=== PATIENT | female | born 1985 | race Two or more races ===

== ENCOUNTER 2017-04-17 06:07 | Day surgery (SDC) | payer BC ==
[~2017-04-17] VITALS: Ht 165.1 cm; Wt 52.5 kg
[2017-04-17] VITALS (16 sets, daily range): BP systolic 104–133; BP diastolic 54–72
--- NOTE | 2017-04-17 00:17 | History and Physical Report ---
DATE OF ADMISSION: 04/17/2017 PREOPERATIVE DIAGNOSIS: The patient is a 31-year-old G0 with lower abdominal pain, increasing in frequency and dysmenorrhea as well as bilateral hemorrhagic cysts consistent with endometriomas. HISTORY OF PRESENT ILLNESS: The patient has first presented in December 2016 complaining of dysmenorrhea and occasional lower abdominal pain as well as dyspareunia. On exam and ultrasound, a 3.8 cm chocolate cyst was identified on the left. The patient was counseled. The findings were discussed, presumptive diagnosis of endometriosis was made, given the findings of ultrasound and her symptoms. The patient was attempting and she was reluctant to undergo hormonal treatment or laparoscopy at that time. She presented on 03/09/2017 complaining that the pain became more constant in her lower abdomen, right side more than the left. On exam, she still had the left-sided endometrioma. Extensive discussion insued regarding laparoscopy. She re-presented again on 04/13/2017 when possible bilateral endometriomas were seen. There was a 3.0 cm right ovarian cyst and 3.1 cm left ovarian cyst and both hemorrhagic. PAST MEDICAL HISTORY: None. PAST SURGICAL HISTORY: None. REVIEW OF SYSTEMS: Consistent with heavy bleeding, lower abdominal pain, and dysmenorrhea. The patient also has a 2-year history of infertility. PHYSICAL EXAMINATION: GENERAL: Thin female, in no acute distress. VITAL SIGNS: Height 65 inches, weight 192 pounds. Blood pressure 92/52, respiratory rate 18, and temperature 97.8. HEAD AND NECK: Pupils are equal and reactive to light. LUNGS: Clear to auscultation bilaterally. CARDIAC: Regular rate and rhythm. ABDOMEN: Soft, nondistended, and nontender. PELVIC: Bimanual exam consistent with bilateral adnexal fullness, bilateral 3 cm cysts, normal sized midline uterus. RECTOVAGINAL: No nodularity. No masses . EXTREMITIES: No cords. No cyanosis. No edema. ASSESSMENT: The patient is a 31-year-old G0 with reportedly lower abdominal pain, bilateral ovarian cysts, and history of infertility with probable endometriosis. PLAN: Laparoscopy, Bilateral cystectomies, possible laser ablation of endometriosis, hysteroscopy dilation and curettage. Jaky Mistry M.D. DR: ARIAN JOB#: [id number] CC: SMAIRA
[~2017-04-17 06:07] MED LIST: cefOXitin Sod 2 GM in D5W 110 ML IVPB ONE
[2017-04-17] MEDS ORDERED: Ropivacaine 5mg/ml Vial 30ml INJ ONE (07:23)
[2017-04-17] MEDS ORDERED: Glycopyrrolate 0.2mg/ml 1ml Vial ONE (07:30)
[2017-04-17] MEDS ORDERED: Zemuron 50mg/5ml Inj IV ONE (07:30)
[2017-04-17] MEDS ORDERED: ProvayBlue 5mg/ml 10ml amp INJ ONE (07:30)
[2017-04-17] MEDS ORDERED: Sterile Water Irrig 1000ml IRRIG ONE (07:30)
[2017-04-17] MEDS ORDERED: fentaNYL 100 mcg/2 mL IV ONE (07:30)
[2017-04-17] MEDS ORDERED: LR 1000ml ONE (07:30)
[2017-04-17] MEDS ORDERED: NS Irrig 1000ml ONE (07:30)
[2017-04-17] MEDS ORDERED: Ketorolac 30mg Inj ONE (07:30)
[2017-04-17] MEDS ORDERED: Neostigmine 1mg/ml 10ml Inj ONE (07:30)
[2017-04-17] MEDS ORDERED: Propofol 200mg/20ml IV ONE (07:30)
[2017-04-17] MEDS ORDERED: TransDerm Scop 1mg/72HR Patch TDERMAL ONE (07:35)
[2017-04-17] MEDS ORDERED: cefOXitin 2gm Inj ONE (07:35)
[2017-04-17] MEDS ORDERED: cefOXitin 1gm Inj ONE (07:36)
[2017-04-17] MEDS ORDERED: NS Irrig 1000ml IRRIG ONE (07:40)
--- NOTE | 2017-04-17 07:48 | Pre-Procedure Note/Attestation ---
Pre-Procedure Note/Attestation Complete Prior to Procedure Planned Procedure: not applicable Procedure Narrative: laparoscopy, ovarian cystectomy, possible ablation of endometriosis, hysteroscopy Dilation and curettage Indications for Procedure Pre-Operative Diagnosis: pain, dysmenorhea, bilateral ovarian cysts Attestation I attest that I discussed the nature of the procedure; its benefits; risks and complications; and alternatives (and the risks and benefits of such alternatives ), prior to the procedure, with the patient (or the patient's legal metals sales representative). I attest that, if there was a reasonable possibility of needing a blood transfusion, the patient (or the patient's legal metals sales representative) was given the [place] Department [employer] standardized written summary, pursuant to the [place] Blood Safety Act ([place] Health and Safety Code # 1645, as amended). I attest that I re-evaluated the patient just prior to the surgery and that there has been no change in the patient's H&P, except as documented below: LEXI GREEN Apr 17, 2017 07:48
[2017-04-17] MEDS ORDERED: DiphenhydrAMINE 50mg/ml Inj IVP PRN (08:00)
[2017-04-17] MEDS ORDERED: Tylenol #3 tab (300mg/30mg) ORAL PRN (08:00)
[2017-04-17] MEDS ORDERED: D5 1/2NS 1,000 ML IV SCH (08:00)
[2017-04-17] MEDS ORDERED: HYDROmorphone 1mg/ml Carpuject SUBQ PRN (08:00)
--- NOTE | 2017-04-17 10:05 | Anethesia Preoperative Eval ---
Anesthesia Pre-op PMH/ROS General Date of Evaluation: Apr 17, 2017 Time of Evaluation: 07:00 ASA Score: ASA 1 Mallampati Score Class I : Soft palate, uvula, fauces, pillars visible Class II: Soft palate, uvula, fauces visible Class III: Soft palate, base of uvula visible Class IV: Only hard plate visible Mallampati Classification: Class I Allergies: Coded Allergies: No Known Allergies (Unverified , 04/17/17) Anesthesia Pre-op Phys. Exam Physician Exam Last Vital Signs Date Time Temp Pulse Resp B/P (MAP) Pulse Ox O2 Delivery O2 Flow Rate FiO2 04/17/17 07:03 98.2 63 17 117/69 98 Room Air 98.2 Airway Exam Mallampati Score: Class I Anesthesia Pre-op A/P Labs Urine Test Test 04/17/17 06:20 Urine HCG, Qualitative Negative Solomon Crouch MD Apr 17, 2017 10:05
--- NOTE | 2017-04-17 10:05 | Brief Operative Note ---
Immediate Post Operative Note Operative Note Pre-op Diagnosis: pain, dysmenorhea, bilateral ovarian cysts Procedure: Co2 laser laparoscopy, left ovarian cystectomy, ablation of endometriosis, lysis of adhesions Post-op Diagnosis: left ovarian cyst, endometriosis , extensive adhesions Surgeon: pavithra Gluer Machine Setup Operator: saeid ruffin Anesthesiologist: Willa Specimen: yes Complications: none Condition: stable Fluids: crystalloid Estimated Blood Loss: volume - 100 cc Drains: none Implant(s) used?: No LEXI GREEN Apr 17, 2017 10:05
--- NOTE | 2017-04-17 10:06 | Immediate Post-Op Evaluation ---
Immediate Post-Op Evalulation Immediate Post-Op Evalulation Date of Evaluation: Apr 17, 2017 Time of Evaluation: 10:05 Nausea: No Vomiting: No Given Within 1 Hr of Incision: Yes Solomon Crouch MD Apr 17, 2017 10:06
[2017-04-17] MEDS ORDERED: Morphine Sulfate 2mg/ml Inj IVP PRN (10:30)
[2017-04-17] MEDS ORDERED: Ketorolac 30mg Inj IV PRN (10:30)
[2017-04-17] MEDS ORDERED: Hydromorphone 0.5mg/0.5ml inj IVP PRN (10:30)
[2017-04-17] MEDS: fentaNYL 100 mcg/2 mL IV PRN ×3 (10:30→11:06)
[2017-04-17] MEDS ORDERED: fentaNYL 100 mcg/2 mL IV PRN (10:30)
[2017-04-17] MEDS: Norco 5mg/325mg tab ORAL PRN (14:27)
--- NOTE | 2017-04-17 15:04 | 48 Hour Post Anesthesia Eval ---
Post Anesthesia Evaluation Procedure: laprascopic ovarian cystectomy Date of Evaluation: Apr 17, 2017 Time of Evaluation: 15:04 Nausea: No Vomiting: No Follow-up care needed: ready to discharge Solomon Crouch MD Apr 17, 2017 15:04
--- NOTE | 2017-04-21 08:30 | Operative Note - Dictated ---
DATE OF OPERATION: 04/17/2017 NOTE: POOR AUDIO PREOPERATIVE DIAGNOSES: 1. Dysmenorrhea. 2. Right lower quadrant pain. 3. Ovarian cyst. POSTOPERATIVE DIAGNOSES: 1. Dysmenorrhea. 2. Right lower quadrant pain. 3. Ovarian cyst. 4. Multiple filmy as well as dense adhesions. PROCEDURES PERFORMED: 1. CO2 laser pelviscopy. 2. Left ovarian cystectomy. 3. Extensive lysis of adhesions. 4. Ablation of endometriosis. 5. Hysteroscopy. SURGEON: Jaky Mistry M.D. LANCE CREWMEMBER/MLRS SERGEANT: Chiquis Cavazos M.D. ANESTHESIOLOGIST: Solomon Crouch M.D. ANESTHESIA: General endotracheal and spinal. ESTIMATED BLOOD LOSS: 100 mL. COMPLICATIONS: None. PROCEDURE IN DETAIL: After ensuring informed consent, the patient was taken to the operating room where general anesthesia was induced. The patient was sterilely prepped and draped. Weighted speculum was placed in the vagina. Cervix was dilated to an 8 Hegar dilator. Hysteroscope was placed inside the uterine cavity. Uterine cavity was distended with normal saline. Bilateral tubal ostia were observed. Hysteroscope was withdrawn. HUMI-type manipulator was placed inside the uterine cavity. Next, the attention was turned to the abdomen where umbilicus was infiltrated with a solution of local Marcaine. Next, an incision was made in the skin. A Veress needle was placed inside the peritoneal cavity and intraperitoneal placement was confirmed with low opening pressures. Next, a 11 mm trocar was placed inside the umbilicus and intraperitoneal placement was confirmed by visualization. Next, two lateral 5 mm trocars were placed under direct visualization after infiltration with local. Pelvis was explored. There was approximately a 3 to 4 cm left ovarian cyst. The left ovary was densely adherent to the left tube, which was moderately dilated as well as to the cul-de-sac. On the right side, there were dense adhesions between the ovary and the cul-de-sac, but the tube appeared to be normal. There were adhesions between the rectosigmoid and posterior uterus. There were multiple nodules of endometriosis on the right pelvic sidewall. Next, using Co2 laser left ovary was opened over the ovarian cyst. Cyst was grasped with graspers and both bluntly and sharply resected from the underlying ovarian stroma. Ovarian stroma was cauterized with bipolar and excellent hemostasis was assured. Next, left ovary was bluntly and sharply resected from posterior uterus and cul-de-sac until it was completely freed. Again, unfortunately the left tube was a hydrosalpinx - moderate to large. Next, attention was turned to the right where there were a small cyst but once it was incised with the laser it was obviously a follicular cyst. The right tube appeared completely normal. The right adnexa was both bluntly and sharply resected from the posterior uterus until it was free. Next, attention was turned to the right side where there were nodules of endometriosis as well as some filmy adhesions between the small bowel and anterior abdominal wall. First, nodules of endometriosis were ablated with laser and then using both laser and endoshears the filmy adhesions were transected. Pelvis was copiously irrigated. Excellent hemostasis was assured. Next, a dilute solution of Methylin Blue was injected through the HUMI manipulator into the pelvis. The left tube was occluded and there was no spill from that, however, the right tube was patent and appeared completely normal. Next, again pelvis was irrigated. All trocars were removed under direct visualization. Intraumbilical trocar was closed with 0 Vicryl and the skin was closed with Steri-Strips, lateral trocars were closed with 4-0 Monocryl and Steri-Strips. At the end of the procedure, all instrument and lap counts were correct x3. HUMI-type manipulator was removed and Hussein was removed. The patient was taken to the recovery area, extubated, and in stable condition. Jaky Mistry M.D. DR: ARIAN JOB#: [id number] CC: SAMIRA
== END 2017-04-17 15:50 | disposition home or self-care (01) ==
LOC: SUR 06:07 → EDBD 07:30 → SUR 15:50
DX: N80.3 Endometriosis of pelvic peritoneum (principal); N94.6 Dysmenorrhea, unspecified; N73.6 Female pelvic peritoneal adhesions (postinfective); N85.8 Other specified noninflammatory disorders of uterus; N83.202 Unspecified ovarian cyst, left side; N83.201 Unspecified ovarian cyst, right side; R10.31 Right lower quadrant pain
CPT/HCPCS: 49329; 58555; 58662; 81025; J0694; J1885; J2405; J2704; J2710; J2795; J3010; J7120; 94003; 94150

== ENCOUNTER 2017-05-16 16:40 | Emergency (ER) | payer BC ==
[~2017-05-16] VITALS: Ht 165.1 cm; Wt 49.9 kg
[2017-05-16] MEDS ORDERED: NKM (17:00)
[2017-05-16 17:37] LABS: BASOPHILS % (AUTO) 1.2 % (0.0-2.0); EOSINOPHILS % (AUTO) 1.2 % (0.0-3.0); HEMATOCRIT 38.8 % (37.0-47.0); HEMOGLOBIN 13.2 G/DL (12.0-16.0); MEAN CORPUSCULAR VOLUME 98 FL (80-99); MONOCYTES % (AUTO) 7.3 % (1.0-10.0); NEUTROPHILS % (AUTO) 61.3 % (45.0-75.0); PLATELET COUNT 325 K/UL (150-450); RED BLOOD COUNT 3.97 M/UL (4.20-5.40); RED CELL DISTRIBUTION WIDTH 11.3 % (11.6-14.8); WHITE BLOOD COUNT 8.5 K/UL (4.8-10.8)
[2017-05-16 17:40] LABS: APPEARANCE,URINE CLEAR; BILIRUBIN, URINE NEGATIVE (NEGATIVE); COLOR,URINE PALE YELLOW; GLUCOSE, URINE (UA) NEGATIVE (NEGATIVE); KETONES,URINE NEGATIVE (NEGATIVE); LEUKOCYTE ESTERASE ,URINE NEGATIVE (NEGATIVE); NITRITE,URINE NEGATIVE (NEGATIVE); PH,URINE 6 (4.5-8.0); PROTEIN,URINE NEGATIVE (NEGATIVE); UROBILINOGEN,URINE NORMAL MG/DL (0.0-1.0)
[2017-05-16 17:49] LABS: ANION GAP 9 mmol/L (5-15); BLOOD UREA NITROGEN 11 mg/dL (7-18); CALCIUM 9.1 MG/DL (8.5-10.1); CARBON DIOXIDE 28 MMOL/L (21-32); CHLORIDE 102 MMOL/L (98-107); CREATININE 0.7 MG/DL (0.55-1.30); POTASSIUM 3.7 MMOL/L (3.5-5.1); SODIUM 139 MMOL/L (136-145)
[2017-05-16 17:52] LABS: INR 1.1 (0.9-1.1)
[2017-05-16 17:54] LABS: ALANINE AMINOTRANSFERASE 20 U/L (12-78); ALBUMIN/GLOBULIN RATIO 1.1 (1.0-2.7); ALKALINE PHOSPHATASE 43 U/L (46-116); ASPARTATE AMINO TRANSFERASE 11 U/L (15-37); BILIRUBIN,TOTAL 0.2 MG/DL (0.2-1.0)
[2017-05-16 18:10] VITALS: BP 131/80
[2017-05-16 18:28] VITALS: BP 131/80
[2017-05-16] MEDS ORDERED: CEPHALEXIN500 MG ORAL (19:26)
[2017-05-16] MEDS ORDERED: TYLENOL EXTRA500 MG ORAL (19:26)
[2017-05-16] MEDS ORDERED: DIFLUCAN150 MG PO (19:26)
[2017-05-16 19:34] VITALS: BP 127/77
[2017-05-16 19:35] VITALS: BP 131/80
--- NOTE | 2017-05-16 21:36 | Emergency Room Report ---
History of Present Illness General Chief Complaint: General Complaint Source: Patient Present Illness [facility] The patient is a 31-year-old female presenting for pain after surgery. She had a left ovarian cystectomy 1 month prior in this hospital. She has had continuing pain described as a 5 out of 10 dull ache to the midabdomen. Does not radiate. No known provoking or relieving factors. She has appointment to see a surgeon next week. She presented to emergency department today due to fluid which she noticed from the incision of the umbilicus. She states that she noticed blood as well as a white discharge. She denies any other symptoms including fever, chills, back pain, dysuria, hematuria, nausea, vomiting Allergies: Coded Allergies: No Known Allergies (Unverified , 04/17/17) Patient History Past Medical History: see triage record Pertinent Family History: none Now: No Reviewed Nursing Documentation: PMH: Agreed; PSxH: Agreed Nursing Documentation-PMH Past Medical History: No Stated History Hx Cardiac Problems: No Hx Cancer: No Hx Gastrointestinal Problems: No Hx Neurological Problems: No Review of Systems All Other Systems: negative except mentioned in HPI Physical Exam Vital Signs Date Time Temp Pulse Resp B/P (MAP) Pulse Ox O2 Delivery O2 Flow Rate FiO2 05/16/17 16:54 98.5 78 18 138/92 99 Room Air 98.4 Sp02 EP Interpretation: reviewed, normal General Appearance: no apparent distress, alert, GCS 15, non-toxic Head: normocephalic, atraumatic Eyes: bilateral eye normal inspection, bilateral eye PERRL ENT: hearing grossly normal, normal pharynx, no angioedema, normal voice Gastrointestinal: normal bowel sounds, soft, non-distended, no guarding, tenderness - periumbilical Genitourinary: normal inspection, no CVA tenderness Musculoskeletal: back normal, gait/station normal, normal range of motion, non- tender Neurologic: alert, oriented x3, responsive, motor strength/tone normal, sensory intact, speech normal Psychiatric: judgement/insight normal, memory normal, mood/affect normal, no suicidal/homicidal ideation Skin: normal color, no rash, warm/dry, well hydrated Medical Decision Making PA Attestation Dr. Pulido is my supervising physician. Patient management was discussed with my supervising physician Diagnostic Impression: Primary Impression: Abdominal pain Qualified Codes: R10.33 - Periumbilical pain ER Course The patient is a 31-year-old female presenting for pain after surgery. Differential diagnoses considered but not limited to: cellulitis, wound infection, dehiscence, abscess, bowel obstruction, appendicitis, among others PE: Afebrile. NAD Abdomen is soft. Normal bowel sounds. Nondistended. No discoloration. There is a serosanguineous fluid from the umbilical incision site. Otherwise exam unremarkable Spoke with Dr. Cavazos regarding patient Blood work unremarkable. No leukocytosis CT abdomen and pelvis unremarkable The patient is given prescription for Keflex and will follow-up with surgeon. She has appointment this coming week. ER precautions provided including the patient develops abdominal pain and/or fever. She is given prescription for one dose of Diflucan as she states she always gets a yeast infection after taking antibiotics Laboratory Tests Test 05/16/17 17:15 05/16/17 17:20 05/16/17 17:29 White Blood Count 8.5 K/UL (4.8-10.8) Red Blood Count 3.97 M/UL (4.20-5.40) L Hemoglobin 13.2 G/DL (12.0-16.0) Hematocrit 38.8 % (37.0-47.0) Mean Corpuscular Volume 98 FL (80-99) Mean Corpuscular Hemoglobin 33.2 PG (27.0-31.0) H Mean Corpuscular Hemoglobin Concent 34.0 G/DL (32.0-36.0) Red Cell Distribution Width 11.3 % (11.6-14.8) L Platelet Count 325 K/UL (150-450) Mean Platelet Volume 7.6 FL (6.5-10.1) Neutrophils (%) (Auto) 61.3 % (45.0-75.0) Lymphocytes (%) (Auto) 29.0 % (20.0-45.0) Monocytes (%) (Auto) 7.3 % (1.0-10.0) Eosinophils (%) (Auto) 1.2 % (0.0-3.0) Basophils (%) (Auto) 1.2 % (0.0-2.0) Prothrombin Time 11.4 SEC (9.30-11.50) Prothrombin Time INR 1.1 (0.9-1.1) PTT 26 SEC (23-33) Sodium Level 139 MMOL/L (136-145) Potassium Level 3.7 MMOL/L (3.5-5.1) Chloride Level 102 MMOL/L (98-107) Carbon Dioxide Level 28 MMOL/L (21-32) Anion Gap 9 mmol/L (5-15) Blood Urea Nitrogen 11 mg/dL (7-18) Creatinine 0.7 MG/DL (0.55-1.30) Estimate Glomerular Filtration Rate > 60 mL/min (>60) Glucose Level 109 MG/DL (74-106) H Calcium Level 9.1 MG/DL (8.5-10.1) Total Bilirubin 0.2 MG/DL (0.2-1.0) Aspartate Amino Transferase (AST) 11 U/L (15-37) L Alanine Aminotransferase (ALT) 20 U/L (12-78) Alkaline Phosphatase 43 U/L (46-116) L Total Protein 7.8 G/DL (6.4-8.2) Albumin 4.0 G/DL (3.4-5.0) Globulin 3.8 g/dL Albumin/Globulin Ratio 1.1 (1.0-2.7) Lipase 189 U/L (73-393) Human Chorionic Gonadotropin, Quant < 1 mIU/mL (1-6) L Urine Color Pale yellow Urine Appearance Clear Urine pH 6 (4.5-8.0) Urine Specific [place] 1.010 (1.005-1.035) Urine Protein Negative (NEGATIVE) Urine Glucose (UA) Negative (NEGATIVE) Urine Ketones Negative (NEGATIVE) Urine Occult Blood 2+ (NEGATIVE) H Urine Nitrite Negative (NEGATIVE) Urine Bilirubin Negative (NEGATIVE) Urine Urobilinogen Normal MG/DL (0.0-1.0) Urine Leukocyte Esterase Negative (NEGATIVE) Urine RBC 2-4 /HPF (0 - 2) H Urine WBC 0 /HPF (0 - 2) Urine Squamous Epithelial Cells Occasional /LPF Urine Bacteria Occasional /HPF (NONE) Urine HCG, Qualitative Negative (NEGATIVE) Lab Results Impression No leukocytosis Urinalysis unremarkable CT/MRI/US Diagnostic Results CT/MRI/US Diagnostic Results : Imaging Test Ordered: CT abd/pelvis Impression Appendix not clearly identified. No SBO. Mildly striated nephrograms. No kidney stone. Otherwise unremarkable Last Vital Signs Date Time Temp Pulse Resp B/P (MAP) Pulse Ox O2 Delivery O2 Flow Rate FiO2 05/16/17 19:35 98.7 89 20 131/80 100 Room Air 98.7 Status: improved Disposition: HOME, SELF-CARE Condition: Improved Scripts Fluconazole (DIFLUCAN) 150 Mg Tablet 150 MG PO DAILY, #1 TAB Prov: MARQUISE GORDON P.A. 05/16/17 Acetaminophen* (TYLENOL EXTRA STRENGTH*) 500 Mg Tablet 500 MG ORAL Q8H PRN for Prn Headache/Temp > 101, #30 TAB 0 Refills Prov: MARQUISE GORDON P.A. 05/16/17 Cephalexin* (KEFLEX*) 500 Mg Capsule 500 MG ORAL EVERY 12 HOURS, #14 CAP 0 Refills Prov: MARQUISE GORDON.A. 05/16/17 Patient Instructions: Abdominal Pain, Adult Additional Instructions: I discussed my findings with the patient. All questions and concerns have been answered. Treatment and medication compliance have been addressed. I advised the patient that they need to follow up with PMD in 3-5 days. Return to ED if symptoms worsen, new symptoms arise, or if needed for any reason. Patient verbalized understanding of discharge instructions. Please follow up with surgeon on as discussed MARQUISE GORDON May 16, 2017 21:36
--- NOTE | 2017-05-17 09:27 | Diagnostic Imaging Report ---
Indication: Abdominal pain Technique: CT of the abdomen and pelvis utilizing automated exposure control with intravenous contrast. Venous scanning performed. CT dose: Total DLP 433 mGycm; CTDI vol 8.6 mGy Comparison: None Findings: Visualized lung bases are clear. There is limited evaluation of the bowel without oral contrast. The liver, adrenal glands, spleen and pancreas are unremarkable. No CT dense gallstones are seen. There is a left renal cyst that measures 1.2 cm. The small bowel loops are normal in caliber. Appendix is not clearly identified but there is no definitive evidence of appendicitis. There is no free intraperitoneal air. Evaluation of the adnexa limited by adjacent small bowel loops but there is suggestion of small area of left adnexal hypodensity. The osseous structures demonstrate no acute abnormality. There is transitional anatomy of the lumbosacral junction. Impression: Examination limited without oral contrast. Appendix not clearly identified but no definitive evidence of appendicitis. Further evaluation recommended as indicated. Limited evaluation of the left adnexa secondary to adjacent small bowel loops. Suggestion of small area of left adnexal hypodensity could represent small cyst or mild hydrosalpinx. Correlation with ultrasound recommended. Left renal cyst. The CT scanner at [facility] is accredited by the [employer] and the scans are performed using protocols designed to limit radiation exposure to as low as reasonably achievable to attain images of sufficient resolution adequate for diagnostic evaluation.
== END 2017-05-16 19:35 | disposition home or self-care (01) ==
LOC: EMR 17:31
DX: R10.33 Periumbilical pain (principal)
CPT/HCPCS: 36415; 74177; 80053; 81003; 81025; 83690; 84702; 85025; 85610; 85730; 99284; Q9967